=== PATIENT | female | born 1965 | race Caucasian/White ===

== ENCOUNTER 2022-01-24 20:45 | Emergency (ER) | payer OTHER ==
[~2022-01-24] VITALS: Ht 162.6 cm; Wt 90.9 kg
[2022-01-24 21:34] LABS: BASO # 0.03 K/mm3 (0.02-0.10); EOS # 0.02 K/mm3 (0.04-0.40); EOS % 0.2 % (1.0-5.0); HEMOGLOBIN 14.2 g/dL (12.5-16.0); LYMPH# 0.88 K/mm3 (1.50-4.00); MEAN CELL VOLUME 90 fl (78-100); MEAN CORPUSCULAR HEMOGLOBIN 30 pg (27-31); MEAN CORPUSCULAR HGB CONC 34 g/dL (33-37); MEAN PLATELET VOLUME 9.9 fl (7.4-10.4); MONO # 0.61 K/mm3 (0.20-0.80); PLATELET COUNT 180 K/mm3 (130-400); RED BLOOD COUNT 4.68 M/mm3 (4.10-5.30); RED CELL DISTRIBUTION WIDTH 13.1 % (11.5-14.5); WHITE BLOOD COUNT 8.3 K/mm3 (4.8-10.8)
[2022-01-24 22:00] LABS: POTASSIUM 3.9 mmol/L (3.5-5.1)
[2022-01-24 22:03] LABS: TOTAL PROTEIN 7.7 g/dL (6.4-8.3)
[2022-01-24] MEDS ORDERED: PROAIR HFA0.09 MG/AC IH (22:41)
[2022-01-24] MEDS ORDERED: LEVOFLOXACIN500 M1 PO (22:41)
[2022-01-24] MEDS ORDERED: PROMETH-CODEIN 65 ML PO (22:41)
[2022-01-24 22:49] LABS: URINE APPEARANCE HAZY; URINE COLOR YELLOW
[2022-01-24 22:50] LABS: URINE BILIRUBIN NEGATIVE (NEGATIVE); URINE BLOOD TRACE (NEGATIVE); URINE GLUCOSE NEGATIVE (NEGATIVE); URINE KETONE 1+ (NEGATIVE); URINE LEUKOCYTE ESTERASE 1+ (NEGATIVE); URINE MUCUS PRESENT (NOT PRESENT); URINE NITRATE NEGATIVE (NEGATIVE); URINE PROTEIN(semi-quant) 1+ (NEGATIVE); URINE UROBILINOGEN NORMAL (NORMAL)
[2022-01-24 23:05] VITALS: BP 127/82
== END 2022-01-24 23:05 | disposition home or self-care (01) ==
LOC: ED 20:45
PROVIDERS: Family Medicine
DX: A41.9 Sepsis, unspecified organism (principal); J40 Bronchitis, not specified as acute or chronic; Z20.822 Contact with and (suspected) exposure to COVID-19
CPT/HCPCS: J0696; J7030

== ENCOUNTER 2022-01-29 15:09 | Observation (INO) | payer OTHER ==
[~2022-01-29] VITALS: Ht 165.1 cm; Wt 108.9 kg
[~2022-01-29 15:09] MED LIST: LEVOFLOXACIN500 M1 PO; PROAIR HFA0.09 MG/AC IH; PROMETH-CODEIN 65 ML PO
[2022-01-29 15:36] LABS: BASO # 0.04 K/mm3 (0.02-0.10); EOS # 0.16 K/mm3 (0.04-0.40); EOS % 1.8 % (1.0-5.0); HEMATOCRIT 41.1 % (37.0-47.0); HEMOGLOBIN 13.9 g/dL (12.5-16.0); LYMPH# 1.58 K/mm3 (1.50-4.00); MEAN CELL VOLUME 88 fl (78-100); MEAN CORPUSCULAR HEMOGLOBIN 30 pg (27-31); MEAN CORPUSCULAR HGB CONC 34 g/dL (33-37); MEAN PLATELET VOLUME 9.2 fl (7.4-10.4); PLATELET COUNT 237 K/mm3 (130-400); RED BLOOD COUNT 4.67 M/mm3 (4.10-5.30); RED CELL DISTRIBUTION WIDTH 12.7 % (11.5-14.5); WHITE BLOOD COUNT 8.7 K/mm3 (4.8-10.8)
[2022-01-29 15:44] LABS: ALBUMIN 4.3 g/dL (3.5-5.0); POTASSIUM 3.6 mmol/L (3.5-5.1); SODIUM 139 mmol/L (136-145)
[2022-01-29 15:45] LABS: CALCIUM 9.9 mg/dL (8.3-10.5)
[2022-01-29 15:46] LABS: GLUCOSE 105 mg/dL (65-105)
[2022-01-29 15:47] LABS: TOTAL PROTEIN 8.2 g/dL (6.4-8.3)
[2022-01-29 15:48] LABS: CARBON DIOXIDE 22 mmol/L (22-29)
[2022-01-29 15:52] LABS: AST-SGOT 27 U/L (5-34)
[2022-01-29 15:53] LABS: ALT/SGPT 40 U/L (0-55)
[2022-01-29 16:10] LABS: TROPONIN-I < 0.030 ng/mL (<0.030)
[2022-01-29 16:29] LABS: URINE APPEARANCE CLEAR; URINE BILIRUBIN NEGATIVE (NEGATIVE); URINE BLOOD NEGATIVE (NEGATIVE); URINE COLOR YELLOW; URINE GLUCOSE NEGATIVE (NEGATIVE); URINE KETONE NEGATIVE (NEGATIVE); URINE LEUKOCYTE ESTERASE TRACE (NEGATIVE); URINE NITRATE NEGATIVE (NEGATIVE); URINE PROTEIN(semi-quant) 2+ (NEGATIVE); URINE UROBILINOGEN NORMAL (NORMAL)
[2022-01-29 16:30] LABS: URINE MUCUS PRESENT (NOT PRESENT)
[2022-01-29 16:42] LABS: TOTAL BILIRUBIN 0.6 mg/dL (0.2-1.2)
[2022-01-29 17:18] VITALS: BP 141/74
[2022-01-29 21:47] VITALS: BP 125/75
[2022-01-30 02:17] VITALS: BP 128/69
[2022-01-30 05:48] VITALS: BP 107/49
[2022-01-30 07:14] LABS: BASO # 0.03 K/mm3 (0.02-0.10); EOS # 0.16 K/mm3 (0.04-0.40); EOS % 2.7 % (1.0-5.0); HEMATOCRIT 33.5 % (37.0-47.0); HEMOGLOBIN 11.1 g/dL (12.5-16.0); LYMPH# 1.26 K/mm3 (1.50-4.00); MEAN CELL VOLUME 90 fl (78-100); MEAN CORPUSCULAR HEMOGLOBIN 30 pg (27-31); MEAN CORPUSCULAR HGB CONC 33 g/dL (33-37); MEAN PLATELET VOLUME 9.3 fl (7.4-10.4); MONO # 0.53 K/mm3 (0.20-0.80); NEU # 3.93 K/mm3 (1.40-6.50); PLATELET COUNT 211 K/mm3 (130-400); RED BLOOD COUNT 3.71 M/mm3 (4.10-5.30); RED CELL DISTRIBUTION WIDTH 12.9 % (11.5-14.5); WHITE BLOOD COUNT 5.9 K/mm3 (4.8-10.8)
[2022-01-30 07:24] LABS: POTASSIUM 3.8 mmol/L (3.5-5.1)
[2022-01-30 07:26] LABS: CALCIUM 8.9 mg/dL (8.3-10.5)
[2022-01-30 10:29] VITALS: BP 131/84
[2022-01-30 14:20] VITALS: BP 120/80
[2022-01-30 17:12] VITALS: BP 117/78
[2022-01-30 22:05] VITALS: BP 138/77
[2022-01-31 02:00] VITALS: BP 114/64
[2022-01-31 05:55] VITALS: BP 127/81
[2022-01-31 09:35] LABS: BASO # 0.01 K/mm3 (0.02-0.10); HEMATOCRIT 37.7 % (37.0-47.0); HEMOGLOBIN 12.4 g/dL (12.5-16.0); LYMPH# 0.71 K/mm3 (1.50-4.00); MEAN CELL VOLUME 91 fl (78-100); MEAN CORPUSCULAR HEMOGLOBIN 30 pg (27-31); MEAN CORPUSCULAR HGB CONC 33 g/dL (33-37); MEAN PLATELET VOLUME 9.7 fl (7.4-10.4); MONO # 0.16 K/mm3 (0.20-0.80); PLATELET COUNT 267 K/mm3 (130-400); RED BLOOD COUNT 4.13 M/mm3 (4.10-5.30); RED CELL DISTRIBUTION WIDTH 13.1 % (11.5-14.5); WHITE BLOOD COUNT 14.1 K/mm3 (4.8-10.8)
[2022-01-31 09:47] LABS: POTASSIUM 3.7 mmol/L (3.5-5.1)
[2022-01-31 09:48] LABS: CALCIUM 9.5 mg/dL (8.3-10.5)
[2022-01-31 10:05] VITALS: BP 124/67
[2022-01-31] MEDS ORDERED: ZITHROMAX500 M2 PO (10:17)
[2022-01-31] MEDS ORDERED: CEFDINIR300 MG PO (10:17)
[2022-01-31] MEDS ORDERED: HYDROCODONE PO473 ML PO (10:18)
[2022-01-31] MEDS ORDERED: ALBUTEROL2.5 MG/3 M IH (10:18)
[2022-01-31] MEDS ORDERED: PREDNISONE20 MG PO (10:20)
[2022-01-31] MEDS ORDERED: NEB (10:20)
== END 2022-01-31 11:15 | disposition home or self-care (01) ==
LOC: ED 15:09 → MED/SURG 16:46
PROVIDERS: Physician Assistant; ADMIT Nurse Practitioner
DX: J18.9 Pneumonia, unspecified organism (principal); J40 Bronchitis, not specified as acute or chronic; R11.2 Nausea with vomiting, unspecified
CPT/HCPCS: G0378; J0696; J2405; J2930; J7030; J7120; Q9967

== ENCOUNTER → 2022-02-07 | Outpatient (CLI) | payer OTHER ==
[~2022-02-07] MED LIST changes: +ALBUTEROL2.5 MG/3 M IH; +CEFDINIR300 MG PO; +HYDROCODONE PO473 ML PO; +NEB; +PREDNISONE20 MG PO; +ZITHROMAX500 M2 PO
== END ==
LOC: RAD 10:00
DX: J18.9 Pneumonia, unspecified organism (principal)

== ENCOUNTER → 2023-03-05 | Outpatient (CLI) | payer MEDICAID | LOC: RAD 09:38 | DX: R06.02 Shortness of breath (principal); R79.89 Other specified abnormal findings of blood chemistry | CPT/HCPCS: Q9967 ==

== ENCOUNTER 2023-06-23 14:42 | Outpatient (RCR) | payer OTHER, MEDICAID | END 2023-07-02 | disposition home or self-care (01) | LOC: PT | DX: Z96.652 Presence of left artificial knee joint (principal) ==

== ENCOUNTER 2023-07-03 08:00 | Outpatient (RCR) | payer MEDICAID | END 2023-07-31 | disposition home or self-care (01) | LOC: PT | DX: Z96.652 Presence of left artificial knee joint (principal) ==

== ENCOUNTER → 2023-10-02 | Outpatient (CLI) | payer MEDICAID | LOC: RAD 14:58 | DX: M19.042 Primary osteoarthritis, left hand (principal); M25.512 Pain in left shoulder ==

== ENCOUNTER → 2023-11-26 | Outpatient (CLI) | payer MEDICAID | LOC: MAMMO 10:15 | DX: Z12.31 Encounter for screening mammogram for malignant neoplasm of breast (principal) ==

== ENCOUNTER → 2024-02-06 | Outpatient (CLI) | payer MEDICAID | LOC: RAD 11:47 → EDSTATUS 11:51 | DX: Z01.818 Encounter for other preprocedural examination (principal); M25.551 Pain in right hip ==

== ENCOUNTER → 2024-02-26 | Outpatient (CLI) | payer MEDICAID | LOC: LAB 09:00 | DX: E55.9 Vitamin D deficiency, unspecified (principal); E03.9 Hypothyroidism, unspecified ==

== ENCOUNTER 2024-03-09 10:52 | Outpatient (RCR) | payer MEDICAID | END 2024-04-01 | disposition home or self-care (01) | LOC: PT | DX: Z96.651 Presence of right artificial knee joint (principal) ==

== ENCOUNTER 2024-04-02 13:20 | Outpatient (RCR) | payer MEDICAID | END 2024-05-01 | disposition home or self-care (01) | LOC: PT | DX: Z96.651 Presence of right artificial knee joint (principal) ==

== ENCOUNTER → 2024-08-12 | Outpatient (CLI) | payer MEDICAID | LOC: RAD 09:09 | DX: M54.2 Cervicalgia (principal); R20.2 Paresthesia of skin; R51.9 Headache, unspecified; Z98.890 Other specified postprocedural states ==